=== PATIENT | female | born 2000 | race Two or more races ===

== ENCOUNTER 2022-04-26 19:26 | Emergency (ER) | payer MEDICAID ==
[~2022-04-26] VITALS: Ht 162.6 cm; Wt 115.0 kg
[2022-04-26] MEDS ORDERED: dexamethasone sod phosphate 10mg/ml inj IV STA (20:09)
[2022-04-26] MEDS ORDERED: ketorolac trometh. 30mg/ml inj. IV ONE (20:10)
[2022-04-26] MEDS ORDERED: acetaminophen 325mg tablet PO ONE (20:10)
[2022-04-26] MEDS ORDERED: normal saline 1000ML IV soln IV ONE (20:10)
[2022-04-26 20:50] LABS: BASOPHILS % (AUTO) 0.3 % (0-1); EOSINOPHILS # (AUTO) 0.1 X10'3 (0-0.9); EOSINOPHILS % (AUTO) 2.3 % (0-6); HEMATOCRIT 39.8 % (35.0-45.0); HEMOGLOBIN 13.3 g/dl (12.0-16.0); LYMPHOCYTES # (AUTO) 1.3 X10'3 (1.1-4.8); MEAN CORPUSCULAR HEMOGLOBIN 28.8 PG (27.0-31.0); MEAN CORPUSCULAR HGB CONC 33.4 g/dL (33.0-36.5); MEAN CORPUSCULAR VOLUME 86.3 FL (78-98); MEAN PLATELET VOLUME 7.9 FL (7.4-10.4); MONOCYTES # (AUTO) 0.7 X10'3 (0-0.9); MONOCYTES % (AUTO) 10.4 % (2-12); NEUTROPHILS # (AUTO) 4.2 X10'3 (1.8-7.7); PLATELET COUNT 253 X10'3 (140-440); RED BLOOD COUNT 4.61 X10'6 (4.20-5.60); RED CELL DISTRIBUTION WIDTH 13.1 % (11.5-14.5); WHITE BLOOD COUNT 6.3 X10'3 (4.5-11.0)
[2022-04-26 21:05] LABS: ALANINE AMINOTRANSFERASE 373 U/L (12-78); ALBUMIN 3.7 G/DL (3.4-5.0); ALBUMIN/GLOBULIN RATIO 0.9 (1.1-1.5); ALKALINE PHOSPHATASE 87 IU/L (46-116); ANION GAP 14 (8-16); ASPARTATE AMINO TRANSFERASE 204 U/L (10-37); BILIRUBIN,TOTAL 0.3 MG/DL (0.1-1.0); BLOOD UREA NITROGEN 11 MG/DL (7-18); BUN/CREATININE RATIO 12.6 (6.6-38.0); CHLORIDE 103 MMOL/L (99-107); CREATININE 0.87 MG/DL (0.40-0.90); GLUCOSE 172 MG/DL (70-104); POTASSIUM 3.4 MMOL/L (3.5-5.1); SODIUM 139 MMOL/L (135-145); TOTAL CARBON DIOXIDE 21.6 MMOL/L (24-32); TOTAL PROTEIN 7.8 G/DL (6.4-8.2); eGFR 82 ML/MIN
[2022-04-26] MEDS ORDERED: ALBU6.7H14 INH (21:44)
[2022-04-26] MEDS ORDERED: DEXA6TAB PO (21:44)
[2022-04-26] MEDS ORDERED: ONDA4TAB12 PO (21:44)
[2022-04-26] MEDS ORDERED: NIRM1TAB PO (21:44)
[2022-04-26 22:10] VITALS: BP 112/70
--- NOTE | 2022-04-26 22:14 | NUR ---
CHARGE NURSE NOTIFIED OF GENERAL ASSESSMENT.
== END 2022-04-26 22:26 | disposition home or self-care (01) ==
LOC: ER 19:26
DX: U07.1 COVID-19 (principal); E86.0 Dehydration; Z79.899 Other long term (current) drug therapy
CPT/HCPCS: 36415; 71045; 80053; 84145; 85025; 96361; 96374; 96375; 99284; J1100; J1885; J7030